=== PATIENT | male | born 1960 | race African-American/Black ===

== ENCOUNTER 2018-10-03 14:55 | Emergency (ER) | payer SELFPAY ==
[~2018-10-03] VITALS: Ht 165.1 cm; Wt 84.1 kg
[2018-10-03 15:39] LABS: GLUCOSE,POINT OF CARE 306 MG/DL (70-110)
[2018-10-03] MEDS ORDERED: PERTUSS(ACELL),DIPH,TET VAC/PF 0.5 ML VIAL IM ONE (16:30)
[2018-10-03] MEDS ORDERED: AMOX TR/POT CLAV 875 MG/125 MG TABLET PO ONE (16:30)
[2018-10-03] MEDS ORDERED: ACETAMINOPHEN 500 MG TABLET PO ONE (16:45)
[2018-10-03] MEDS ORDERED: BACITRACIN 0.9 GM PACKET OINTMENT TP ONE (17:03)
[2018-10-03 18:00] VITALS: BP 138/71
== END 2018-10-03 18:05 | disposition home or self-care (01) ==
LOC: EMS 14:56
DX: S61.333A Puncture wound without foreign body of left middle finger with damage to nail, initial encounter (principal); E11.9 Type 2 diabetes mellitus without complications; I10 Essential (primary) hypertension; I25.2 Old myocardial infarction; Z88.5 Allergy status to narcotic agent; Z87.891 Personal history of nicotine dependence; W23.0XXA Caught, crushed, jammed, or pinched between moving objects, initial encounter; Y93.89 Activity, other specified; Y92.89 Other specified places as the place of occurrence of the external cause; Y99.8 Other external cause status
CPT/HCPCS: 90471; 90715